=== PATIENT | male | born 1975 | race Caucasian/White ===

== ENCOUNTER 2017-05-30 16:24 | Emergency (ER) | payer OTHER ==
[~2017-05-30] VITALS: Ht 157.5 cm; Wt 118.0 kg
[~2017-05-30 16:24] MED LIST: ALBU8.5H3 IH; CLOT30CR18 TOP; OMEP40CA6 PO; SUMA100T4 PO
[2017-05-30 16:28] VITALS: Ht 157.5 cm; Wt 118.0 kg
[2017-05-30] MEDS ORDERED: IBUP-1542 PO (17:16)
--- NOTE | 2017-05-30 20:16 | ERD ---
ER Documentation Chief Complaint Chief Complaint Complains of right arm and leg pain x 2 days HPI 41-year-old male complaining of right forearm pain and right heel pain. Patient stated the he injured his her right forearm to 3 weeks ago while he was trying to move a heavy pallet at work. He still has pain in his right forearm while he is trying to lift an object with his right arm extended. No pain at rest. Patient also complained right heel pain 1 week. The pain is worse when he first standing up after prolonged periods sitting or lying. 2 days ago, he noticed a bump in the posterior right heel which was tender. Denies fever or chills. Denies trauma to his foot. ROS All systems reviewed and are negative except as per history of present illness. Medications Home Meds Active Scripts Ibuprofen* (Motrin*) 600 Mg Tab, 600 MG PO Q6H Y for PAIN AND OR ELEVATED TEMP, #30 TAB Prov:KIRTANGEL X. [employer]ENCIL T[employer]IST 05/30/17 Reported Medications Sumatriptan Succinate* (Sumatriptan Succinate*) 100 Mg Tablet, 100 MG PO DAILY Y for PAIN, TAB May repeat after 2 hours if needed; MAX 200 mg/24 hours 08/22/15 Omeprazole* (Omeprazole*) 40 Mg Capsule.dr, 40 MG PO DAILY 07/18/13 Albuterol Sulfate* (Proair HFA*) 8.5 Gm Hfa.aer.ad, 8.5 GM IH QID Y 07/18/13 Clotrimazole* (Athletic Foot* Cream) 30 Gm Cream..g., 30 GM TOP BID 07/18/13 Allergies Allergies: Coded Allergies: No Known Allergy (Unverified , 08/22/15) PMhx/Soc History of Surgery: Yes (APPENDECTOMY, EGD) Anesthesia Reaction: No Hx Neurological Disorder: Yes (MIGRAINES 3 WKS ) Hx Respiratory Disorders: Yes (ASTHMA, LAST INHALER USE 2 WKS AGO) Hx Cardiac Disorders: No Hx Psychiatric Problems: No Hx Miscellaneous Medical Probl: No Hx Alcohol Use: No Hx Substance Use: No Hx Tobacco Use: No Smoking Status: Never smoker Physical Exam Vitals Vital Signs Date Time Temp Pulse Resp B/P Pulse Ox O2 Delivery O2 Flow Rate FiO2 05/30/17 16:28 97.5 72 20 143/83 97 Physical Exam General: Well-developed, well-nourished, conscious and coherent, in no distress Skin: Warm and dry without rash, good texture and turgor Head: Normocephalic without evidence of trauma Eyes: Sclera and conjunctivae normal; pupils equal, round, and reactive to light; extraocular movements are intact Chest: Normal AP diameter. Good expansion without retractions. Nontender. Lungs are clear to auscultate bilaterally with good tidal volume Heart: Regular rate and rhythm. No murmur, rub, or gallops heard Extremities: Right arm normal to inspection. Muscle tenderness in the lateral aspect of the proximal right forearm. Posterior right heel mildly swollen and tender. Patient also has tenderness in the plantar aspect of the right midfoot. Full range of motion. Good strength bilaterally. No clubbing, cyanosis, or edema. Peripheral pulses are intact. Sensation intact Neuro: Alert and oriented 4, GCS 15. Cranial nerves grossly intact. Motor and sensory exams nonfocal. Moves all extremities. Speech clear. Gait normal Procedures/MDM Well-appearing 41-year-old male present ED complaining of right forearm pain 2- 3 weeks. The pain only happens when he is trying to lifting of objects with his right arm extended. Likely he sustained a muscle or tendon strain from lifting the heavy pallet at work 3 weeks ago. I doubt fractures or dislocations of the right upper extremity. Patient is advised to obtain a tennis elbow brace for support. Patient also complaining of right heel pain and swelling. Patient's history and exam findings are consistent with plantar fasciitis of the right foot. Patient given instructions on stretching his plantar fascia, and apply ice at the end of the day. I doubt gout or septic joint. I doubt fractures or dislocations. Patient appears well, stable for discharge and outpatient management. Medical decision making shared with patient and family. Education provided to patient and family. Patient and family expressed understanding of the plan. Medications on discharge: Ibuprofen. Follow-up: Primary care provider in 2-3 days or return to ED if worse. Disclaimer: Inadvertent spelling and grammatical errors are likely due to EHR/ dictation software use and do not reflect on the overall quality of patient care. Also, please note that the electronic time recorded on this note does not necessarily reflect the actual time of the patient encounter. Departure Diagnosis: Primary Impression: Strain of forearm, right Additional Impression: Plantar fasciitis of right foot Condition: Stable Patient Instructions: Treating Plantar Fasciitis, Muscle Strain, Extremity Additional Instructions: Call your primary care doctor TOMORROW for an appointment during the next 1 WEEK.Tell the junior legal secretary that you were referred from this facility.See the doctor sooner or return here if your condition worsens before your appointment time. ANGEL MORALEZ NP May 30, 2017 20:16
== END 2017-05-30 17:43 | disposition home or self-care (01) ==
LOC: FTE 16:24
DX: S56.911A Strain of unspecified muscles, fascia and tendons at forearm level, right arm, initial encounter (principal); M72.2 Plantar fascial fibromatosis; J45.909 Unspecified asthma, uncomplicated; X50.0XXA Overexertion from strenuous movement or load, initial encounter; Y92.89 Other specified places as the place of occurrence of the external cause
CPT/HCPCS: 99283

== ENCOUNTER 2017-11-02 12:18 | Day surgery (SDC) | END 2017-11-02 16:36 | disposition home or self-care (01) ==